=== PATIENT | female | born 1980 | race Two or more races ===

== ENCOUNTER 2019-11-10 18:53 | Inpatient (IN) | payer MEDICAID ==
[~2019-11-10] VITALS: Ht 165.1 cm; Wt 59.0 kg
[~2019-11-10 18:53] MED LIST: NORCO 5-325 TA1 EACH ORAL
[2019-11-10 19:10] VITALS: BP 116/79
--- NOTE | 2019-11-10 19:10 | NUR ---
ED Nurse Note: Patient walked in to Ed c/o upper abdominal pain x4 days. Denies nausea, vomiting, diarrhea. Per pt, she was seen at urgent care 4 days ago for the same sx and was given meds but no relief. Afebrile. Not in any distress. ERMD at bedside.
--- NOTE | 2019-11-10 19:24 | Emergency Room Report ---
History of Present Illness General Chief Complaint: Abdominal Pain Source: Patient Present Illness HPI Patient is a 39-year-old female who presents after increased epigastric pain. Gradual onset of symptoms. Reports having symptoms for approximately 3 to 4 days. Had not been vomiting. Denies any fever. Denies any change with food. Previous episodic abdominal pain in the past. Denies any vomiting or diarrhea. Had no prior surgical history. Denies being . Allergies: Coded Allergies: No Known Allergies (Unverified , 01/21/18) COVID-19 Screening Contact w/high risk pt: No Recent Travel to affected area: No Experienced COVID-19 symptoms?: No Patient History Past Medical History: see triage record Last Menstrual Period: 11/04/2019 Now: No Reviewed Nursing Documentation: PMH: Agreed; PSxH: Agreed Nursing Documentation-PMH Past Medical History: No Stated History Review of Systems All Other Systems: negative except mentioned in HPI Physical Exam Vital Signs Date Time Temp Pulse Resp B/P (MAP) Pulse Ox O2 Delivery O2 Flow Rate FiO2 11/10/19 19:02 98.8 92 20 116/79 (91) 98 Room Air Sp02 EP Interpretation: reviewed, normal General Appearance: normal inspection, well appearing, no apparent distress, alert, GCS 15 Head: atraumatic ENT: normal ENT inspection, hearing grossly normal, normal voice Neck: normal inspection, full range of motion, supple, no bony tend Respiratory: normal inspection, lungs clear, normal breath sounds, no respiratory distress, no retraction, no wheezing Cardiovascular #1: regular rate, rhythm, no edema Gastrointestinal: normal inspection, normal bowel sounds, soft, no guarding, no hernia, tenderness - epigastric Genitourinary: no CVA tenderness Musculoskeletal: normal inspection, back normal, normal range of motion Neurologic: alert, motor strength/tone normal, quilt maker III-XII nml as tested, oriented x3, responsive, speech normal, normal inspection Psychiatric: normal inspection, judgement/insight normal, mood/affect normal Medical Decision Making Diagnostic Impression: Primary Impression: Cholecystitis, acute Additional Impression: Urinary tract infection ER Course Patient presented for epigastric pain. Differential diagnosis includes not limited to gastritis, cholecystitis, pancreatitis among others. Because of complexity of patient's case laboratory tests and imaging studies were ordered laboratory testing was notable for some evidence of urinary infection..Patient was noted to have some gallbladder wall thickening on ultrasound. Laboratory testing was normal for elevated white blood count consistent with cholecystitis. Dr. Bach was contacted for inpatient management due to panel physician. Dr. Crooks was contacted for surgical consult. Labs Test 11/10/19 19:12 11/10/19 19:29 Urine Color Yellow Urine Appearance Slightly cloudy Urine pH 6.5 (4.5-8.0) Urine Specific Piercy 1.015 (1.005-1.035) Urine Protein 2+ (NEGATIVE) Urine Glucose (UA) Negative (NEGATIVE) Urine Ketones 1+ (NEGATIVE) Urine Blood 4+ (NEGATIVE) Urine Nitrite Negative (NEGATIVE) Urine Bilirubin 1+ (NEGATIVE) Urine Ictotest Negative (NEGATIVE) Urine Urobilinogen 4 MG/DL (0.0-1.0) Urine Leukocyte Esterase 2+ (NEGATIVE) Urine RBC 5-10 /HPF (0 - 2) Urine WBC 10-15 /HPF (0 - 2) Urine Squamous Epithelial Cells Moderate /LPF (NONE/OCC) Urine Bacteria Moderate /HPF (NONE) Urine HCG, Qualitative Negative (NEGATIVE) White Blood Count 15.3 K/UL (4.8-10.8) Red Blood Count 3.91 M/UL (4.20-5.40) Hemoglobin 11.9 G/DL (12.0-16.0) Hematocrit 36.6 % (37.0-47.0) Mean Corpuscular Volume 94 FL (80-99) Mean Corpuscular Hemoglobin 30.4 PG (27.0-31.0) Mean Corpuscular Hemoglobin Concent 32.4 G/DL (32.0-36.0) Red Cell Distribution Width 11.7 % (11.6-14.8) Platelet Count 298 K/UL (150-450) Mean Platelet Volume 7.1 FL (6.5-10.1) Neutrophils (%) (Auto) 81.5 % (45.0-75.0) Lymphocytes (%) (Auto) 11.5 % (20.0-45.0) Monocytes (%) (Auto) 4.7 % (1.0-10.0) Eosinophils (%) (Auto) 1.4 % (0.0-3.0) Basophils (%) (Auto) 0.9 % (0.0-2.0) Prothrombin Time 9.8 SEC (9.30-11.50) Prothromb Time International Ratio 0.9 (0.9-1.1) Activated Partial Thromboplast Time 32 SEC (23-33) Sodium Level 137 MMOL/L (136-145) Potassium Level 3.8 MMOL/L (3.5-5.1) Chloride Level 102 MMOL/L (98-107) Carbon Dioxide Level 25 MMOL/L (21-32) Anion Gap 10 mmol/L (5-15) Blood Urea Nitrogen 11 mg/dL (7-18) Creatinine 0.8 MG/DL (0.55-1.30) Estimat Glomerular Filtration Rate > 60 mL/min (>60) Glucose Level 113 MG/DL (74-106) Calcium Level 9.3 MG/DL (8.5-10.1) Total Bilirubin 0.3 MG/DL (0.2-1.0) Aspartate Amino Transf (AST/SGOT) 23 U/L (15-37) Alanine Aminotransferase (ALT/SGPT) 36 U/L (12-78) Alkaline Phosphatase 102 U/L (46-116) Total Protein 8.0 G/DL (6.4-8.2) Albumin 3.3 G/DL (3.4-5.0) Globulin 4.7 g/dL Albumin/Globulin Ratio 0.7 (1.0-2.7) Lipase 112 U/L (73-393) Last Vital Signs Date Time Temp Pulse Resp B/P (MAP) Pulse Ox O2 Delivery O2 Flow Rate FiO2 11/10/19 19:10 98.8 92 20 116/79 98 Room Air Status: unchanged Disposition: ADMITTED INPATIENT Condition: Stable Brian Javier MD November 10, 2019 19:24
--- NOTE | 2019-11-10 19:30 | NUR ---
ED Nurse Note: IV line established. Blood and urine specimen collected and sent to lab.
--- NOTE | 2019-11-10 19:31 | NUR ---
ED Nurse Note: US at bedside.
[2019-11-10 19:37] LABS: BASOPHILS % (AUTO) 0.9 % (0.0-2.0); EOSINOPHILS % (AUTO) 1.4 % (0.0-3.0); HEMATOCRIT 36.6 % (37.0-47.0); HEMOGLOBIN 11.9 G/DL (12.0-16.0); LYMPHOCYTES % (AUTO) 11.5 % (20.0-45.0); MEAN CORPUSCULAR VOLUME 94 FL (80-99); MONOCYTES % (AUTO) 4.7 % (1.0-10.0); NEUTROPHILS % (AUTO) 81.5 % (45.0-75.0); PLATELET COUNT 298 K/UL (150-450); RED BLOOD COUNT 3.91 M/UL (4.20-5.40); RED CELL DISTRIBUTION WIDTH 11.7 % (11.6-14.8); WHITE BLOOD COUNT 15.3 K/UL (4.8-10.8)
[2019-11-10 19:41] LABS: APPEARANCE,URINE SLIGHTLY CLOUDY; BILIRUBIN, URINE 1+ (NEGATIVE); GLUCOSE, URINE (UA) NEGATIVE (NEGATIVE); KETONES,URINE 1+ (NEGATIVE); LEUKOCYTE ESTERASE ,URINE 2+ (NEGATIVE); NITRITE,URINE NEGATIVE (NEGATIVE); PH,URINE 6.5 (4.5-8.0); PROTEIN,URINE 2+ (NEGATIVE); UROBILINOGEN,URINE 4 MG/DL (0.0-1.0)
[2019-11-10 19:44] LABS: COLOR,URINE YELLOW
[2019-11-10 19:48] LABS: ANION GAP 10 mmol/L (5-15); BLOOD UREA NITROGEN 11 mg/dL (7-18); CALCIUM 9.3 MG/DL (8.5-10.1); CARBON DIOXIDE 25 MMOL/L (21-32); CHLORIDE 102 MMOL/L (98-107); CREATININE 0.8 MG/DL (0.55-1.30); POTASSIUM 3.8 MMOL/L (3.5-5.1); SODIUM 137 MMOL/L (136-145)
[2019-11-10 19:52] LABS: ALANINE AMINOTRANSFERASE 36 U/L (12-78); ALBUMIN 3.3 G/DL (3.4-5.0); ALBUMIN/GLOBULIN RATIO 0.7 (1.0-2.7); ALKALINE PHOSPHATASE 102 U/L (46-116); ASPARTATE AMINO TRANSFERASE 23 U/L (15-37); BILIRUBIN,TOTAL 0.3 MG/DL (0.2-1.0)
[2019-11-10] MEDS ORDERED: cefTRIAXone 1 GM in NS 55 ML IVPB ONE (20:00)
--- NOTE | 2019-11-10 20:06 | Diagnostic Imaging Report ---
EXAM: US Abdomen Complete CLINICAL HISTORY: ABD PAIN TECHNIQUE: Real-time ultrasound of the abdomen with image documentation. COMPARISON: CT abdomen and pelvis 01/21/18 FINDINGS: Liver: Liver 15.5 cm No intrahepatic bile duct dilation. Gallbladder: Findings suggestive of the clinical diagnosis of acute cholecystitis: Gall bladder wall thickening and multiple gallstones with minimal pericholecystic fluid. Correlate with presentation. Gallbladder wall 0.6 cm Common bile duct: CBD 0.6 cm No stones. No dilation. Pancreas: Unremarkable as visualized. Kidneys: Left kidney 10.9 cm Right kidney 11 cm No stones. No hydronephrosis. Spleen: Spleen 10.7 cm Aorta: Proximal aorta 1.9 cm No aneurysm. Inferior vena cava: Unremarkable. IMPRESSION: 1. Findings suggestive of the clinical diagnosis of acute cholecystitis: Gall bladder wall thickening and multiple gallstones with minimal pericholecystic fluid. Correlate with presentation. 2. Otherwise unremarkable study.
[2019-11-10 20:30] LABS: INR 0.9 (0.9-1.1)
--- NOTE | 2019-11-10 21:18 | NUR ---
NURSE NOTES: Receive a report from AKHIL Desai from ED.
--- NOTE | 2019-11-10 21:21 | NUR ---
ED Nurse Note: Report given to Kevin LANDAVERDE.
[2019-11-10 21:25] VITALS: BP 122/79
--- NOTE | 2019-11-10 21:30 | NUR ---
NURSE NOTES: Pt admitted from ED via wheelchair. Awake and alert, Vincentian speaking. No acute distress noted. Abdominal pain is tolerating. B/B are continent. Skin intact. IV is on right AC without infiltration. Done check belonging list. Given room orientation. Call light within reach. Will continue to monitor.
--- NOTE | 2019-11-10 21:32 | NUR ---
TRANSFER TO FLOOR: Patient transferred to Medr unit. Report given to Kevin LANDAVERDE. Pt alert and orienetd x4, verbally responsive. Not in any distress. Sinus rhythm. IV line on right AC 20g patent and intact. No skin issues. No isolation. All belongings sent with the patient.
[2019-11-10 21:45] VITALS: BP 126/82
--- NOTE | 2019-11-10 22:00 | NUR ---
NURSE NOTES: Notify Dr. Bach for pt's admission. Receive orders. Read back orders. Order noted and carried out.
[2019-11-10] MEDS ORDERED: Morphine Sulfate 2mg/ml Inj(IV/IM USE ONLY) IVP PRN (22:15)
--- NOTE | 2019-11-10 22:15 | NUR ---
NURSE NOTES: Discussed with pt and pt's family member for plans of care. Educate to NPO. Will continue to monitor.
[2019-11-11] VITALS: BP 110/72
[2019-11-11 04:00] VITALS: BP 111/69
--- NOTE | 2019-11-11 04:00 | NUR ---
NURSE NOTES: No acute distress noted. Denies pain. On NPO. Will continue to monitor.
--- NOTE | 2019-11-11 07:50 | NUR ---
HAND-OFF: Report given to Soraya RN. Round is done. No acute distress noted.
[2019-11-11 08:00] VITALS: BP 105/67
--- NOTE | 2019-11-11 08:00 | NUR ---
NURSE NOTES: Received patient in bed awake. No SOB or acute distress. IV line intact and patent. On NPO. HOB elevated. Bed locked in lowest position. Call light within reach. Will continue plan of care.
[2019-11-11] MEDS ORDERED: traMADol 50mg tab ORAL PRN (10:15)
[2019-11-11] MEDS ORDERED: Levofloxacin 500mg tab ORAL SCH (10:15)
--- NOTE | 2019-11-11 11:44 | NUR ---
NURSE NOTES: Seen by Dr Crooks this morning, placed patient on full liquid diet, to observe for any nausea or vomiting. Ok to discharge from surgery standpoint, Dr Bach made aware and agreed on discharge.
[2019-11-11 12:00] VITALS: BP 121/77
[2019-11-11] MEDS ORDERED: LEVAQUIN500 MG ORAL (12:54)
[2019-11-11] MEDS ORDERED: PANTOPRAZOLE SO40 MG ORAL (12:55)
--- NOTE | 2019-11-11 15:15 | Consultation ---
DATE OF CONSULTATION: 11/11/2019 CONSULTING PHYSICIAN: Shona Crooks MD. REQUESTING PHYSICIAN: Gaurang Bach MD. REASON FOR CONSULTATION: Abdominal pain. HISTORY OF PRESENT ILLNESS: This is a 39-year-old female, who presented to emergency room with abdominal pain for about two to four days. Apparently, she stated the pain was located at the epigastrium without radiation. She denied any nausea or vomiting. She does not know the aggravating factor and she stated that one year ago she had the same episode, which apparently has resolved spontaneously and even this episode has resolved since she has been in the emergency room and at the present time, she does not have any pain and she claims that the pain is more like a heartburn. She denied any jaundice. She denied any fever, cough, dysuria, or frequency. PAST MEDICAL HISTORY: She denies allergies, asthma, diabetes, hypertension, cardiac and renal diseases. PAST SURGICAL HISTORY: None. MEDICATIONS: None. SOCIAL HISTORY: The patient is a 39-year-old female, who is with five children. She is unemployed. Denies smoking and drinking. REVIEW OF SYSTEMS: Noncontributory. PHYSICAL EXAMINATION: GENERAL: The patient appeared to be a well-developed and well-nourished 39-year-old female, lying on the bed, in no acute distress. HEENT: Head is normocephalic and atraumatic. Eyes, pupils are equal, round, and reactive to light. Mouth is clear. NECK: There is no palpable thyromegaly or adenopathy. CHEST: Clear to auscultation and percussion. HEART: There is no gallop or murmur. S1 and S2 are within normal limits. ABDOMEN: Soft, flat, nontender. There is no palpable organomegaly and bowel sounds are audible. GENITAL: Deferred. EXTREMITIES: Within normal limits. LABORATORY DATA: CBC has shown a WBC of 15,000 with a left shift. Chemistry is within normal limits. UA has shown 10 to 15 wbc. Ultrasound has shown cholelithiasis. ASSESSMENT: 1. Cholelithiasis. 2. UTI. PLAN: At this time, the patient does not have any pain and so she will be restarted on a diet and if she tolerates her diet, she will be discharged to home to be followed at the [facility] for elective lap-jeffry. At the same time, she required antibiotics for the UTI. Thank you Dr. Bach, for asking me to participate in the management of this patient. Shona Crooks M.D. DR: DAVEY JOB#: [id number] CC:
[2019-11-11] MEDS ORDERED: Tubing IV Secondary IV ONE (15:18)
--- NOTE | 2019-11-11 15:20 | NUR ---
NURSE NOTES: Patient discharged in stable condition via [employer], arranged by daughter. IV line removed. ID band removed. No new skin issues noted. Belongings accounted for. Discharge instructions given, verbalized understanding. Prescription given to patient. Ambulated to lobby accompanied by nurse.
--- NOTE | 2019-11-11 23:00 | History and Physical Report ---
DATE OF ADMISSION: 11/10/2019 HISTORY OF PRESENT ILLNESS: This is a 39-year-old female came to the emergency room for having abdominal pain, nausea, vomiting, possible acute cholecystitis. The patient is currently asymptomatic, tolerating diet. PAST MEDICAL HISTORY: None. ALLERGIES: None. FAMILY HISTORY: Noncontributory. SOCIAL HISTORY: Lives at home. PHYSICAL EXAMINATION: GENERAL: This is young female, currently in bed, comfortable, tolerating diet. VITAL SIGNS: Blood pressure is 105/67, pulse 85, no fever, temperature 99.2. HEENT: NAD. CHEST: Bilaterally clear. CARDIOVASCULAR: Regular rhythm. ABDOMEN: Soft. Positive bowel sounds and nontender. EXTREMITIES: No edema. GENITOURINARY: Deferred. LABORATORY DATA: White counts are 15,000, hemoglobin 12, hematocrit 36, and platelets are 298. Chemistry panel is unremarkable. Urine showing 2+ leukocyte esterase. ASSESSMENT AND PLAN: 1. UTI. 2. Possible cholecystitis, but unlikely. 3. The patient was given IV antibiotics, PPIs, IV fluids. The patient clinically doing better. Surgery evaluation done. The patient is stable to go home. Follow up with outpatient primary care. Panfilo Bach M.D. DR: Narayan JOB#: [id number] CC:
--- NOTE | 2019-11-12 11:35 | Discharge Summary ---
Discharge Summary Discharge Summary _ DATE OF ADMISSION: 11/10/2019 DATE OF DISCHARGE: 11/11/2019 DISCHARGED BY: Dr. Bach REASON FOR ADMISSION: 39 years old female with no significant past medical history, presented with complaints of gradually increased epigastric pain for 3 to 4 days with some associated nausea. No vomiting. No fevers. Patient reported episodic abdominal pain in the past. No vomiting , no diarrhea. No prior surgical history . upon evaluation vital signs were stable . laboratory work-up revealed leukocytosis WBC 15.3, no fevers. Hemoglobin 11.9 , hematocrit 36.6. Stable renal parameters , electrolytes and LFT. Stable lipase. Urinalysis revealed pyuria , moderate bacteria ,+2 leukocyte esterase. Urine test was negative. Ultrasound of abdomen was suspicious for possible acute cholecystitis. Patient subsequently was admitted for further management. [facility] COURSE: Patient admitted to medical surgical floor. Patient started on IV fluids and empiric antibiotic for UTI. Antiemetic and analgesics provided as needed. Surgeon seen and evaluated patient . At this time all the symptoms resolved. Patient started on diet and was able to tolerate it. Per surgeon patient was stable for discharge home , to follow-up with the [facility] for elective laparoscopic cholecystectomy. Patient was stable for discharge Due to rapid and unexpected improvement in patient condition, patient was discharged in 1 day. FINAL DIAGNOSES: Cholelithiasis UTI DISCHARGE MEDICATIONS: See Medication Reconciliation list. DISCHARGE INSTRUCTIONS: Patient was discharged home. Patient to follow-up with [facility] for elective lap cholecystectomy. I have been assigned to dictate discharge summary for this account. I was not involved in the patient's management. Lisa Barnard NP November 12, 2019 11:35
== END 2019-11-11 15:30 | disposition home or self-care (01) ==
LOC: EMR 19:24 → 3E 20:01 → EDBEDREQ 20:51
DX: K80.20 Calculus of gallbladder without cholecystitis without obstruction (principal); N39.0 Urinary tract infection, site not specified
CPT/HCPCS: 36415; 76700; 80053; 81003; 81025; 83690; 85025; 85610; 85730; 86850; 86900; 86901; 87086; 96361; 96365; 99285; J7030